=== PATIENT | male | born 1985 | race Caucasian/White ===

== ENCOUNTER 2016-07-25 08:09 | Emergency (ER) | payer SELFPAY ==
[~2016-07-25] VITALS: Ht 182.9 cm; Wt 70.5 kg
[2016-07-25 08:12] VITALS: TEMP 97.6
[2016-07-25] MEDS ORDERED: NORCO 325 MG-51 TAB PO (10:01)
[2016-07-25] MEDS ORDERED: FLEXERIL 1010 MG/TAB PO (10:01)
[2016-07-25 10:15] VITALS: BP 138/101; PULSE 84
== END 2016-07-25 10:15 | disposition home or self-care (01) ==
LOC: COL.ER 08:09
DX: S16.1XXA Strain of muscle, fascia and tendon at neck level, initial encounter (principal); S29.012A Strain of muscle and tendon of back wall of thorax, initial encounter; S66.511A Strain of intrinsic muscle, fascia and tendon of left index finger at wrist and hand level, initial encounter; W11.XXXA Fall on and from ladder, initial encounter
CPT/HCPCS: J1885; J2360

== ENCOUNTER 2017-05-10 11:13 | Emergency (ER) | payer SELFPAY ==
[~2017-05-10] VITALS: Ht 182.9 cm; Wt 77.3 kg
[~2017-05-10 11:13] MED LIST: FLEXERIL 1010 MG/TAB PO; NORCO 325 MG-51 TAB PO
[2017-05-10 11:39] VITALS: BP 102/70; PULSE 97; TEMP 98
[2017-05-10] MEDS ORDERED: NORCO 325 MG-51 TAB PO (13:39)
[2017-05-10] MEDS ORDERED: CLEOCIN HCL300 MG PO (13:39)
== END 2017-05-10 14:52 | disposition home or self-care (01) ==
LOC: COL.ER 11:13
DX: K11.20 Sialoadenitis, unspecified (principal)

== ENCOUNTER 2017-12-24 16:37 | Emergency (ER) | payer SELFPAY ==
[~2017-12-24] VITALS: Ht 182.9 cm; Wt 81.8 kg
[~2017-12-24 16:37] MED LIST changes: +CLEOCIN HCL300 MG PO
[2017-12-24 16:50] VITALS: BP 154/95; TEMP 98.6
[2017-12-24] MEDS ORDERED: NORCO 325 MG-51 TAB PO (17:45)
[2017-12-24] MEDS ORDERED: CLEOCIN HCL300 MG PO (17:45)
[2017-12-24 18:02] VITALS: PULSE 88
== END 2017-12-24 18:09 | disposition home or self-care (01) ==
LOC: COL.ER 16:37
DX: K11.5 Sialolithiasis (principal); F17.210 Nicotine dependence, cigarettes, uncomplicated; Z88.0 Allergy status to penicillin

== ENCOUNTER 2018-04-24 16:53 | Emergency (ER) | payer BC ==
[~2018-04-24] VITALS: Ht 182.9 cm; Wt 84.1 kg
[2018-04-24 17:11] VITALS: TEMP 98.6
[2018-04-24] MEDS ORDERED: MOTRIN 800800 MG/TAB PO (17:39)
[2018-04-24 17:44] LABS: COLLECTION METHOD CLEAN CATCH
[2018-04-24 17:51] LABS: BASO # 0.1 (0.0-0.2); BASO % 0.6 % (0.0-2.0); EOS % 0.1 % (0-4.0); GRAN # 4.3 (1.4-6.5); GRAN % 51.9 % (42.2-75.2); HEMATOCRIT 51.1 % (42.0-52.0); HEMOGLOBIN 17.8 g/dl (13.5-18.0); LYMPH # 3.3 (1.2-3.4); LYMPH % 39.5 % (20.0-51.0); MEAN CELL VOLUME 89 fl (80.0-100.0); MEAN CORPUSCULAR HEMOGLOBIN 31 pg (27.0-31.0); MEAN CORPUSCULAR HGB CONC 35 g/dl (33.0-37.0); MEAN PLATELET VOLUME 8.6 fl (7.4-10.4); MONO # 0.6 (0.1-0.6); MONO % 7.7 % (1.7-9.3); PLATELET COUNT 193 K/mm3 (130-400); RED BLOOD COUNT 5.77 M/mm3 (4.20-5.60); REDCELL DISTRIBUTION WIDTH-CV 11.9 % (11.5-14.5)
[2018-04-24 17:52] LABS: MUCOUS Present /lpf; PH 7 (5-8); SQUAMOUS EPITHELIAL None Seen /hpf; URINE APPEARANCE Clear; URINE BACTERIA None Seen /hpf; URINE BILIRUBIN Negative (NEGATIVE); URINE BLOOD Negative (NEGATIVE); URINE COLOR Yellow; URINE GLUCOSE Negative (NEGATIVE); URINE KETONE Negative (NEGATIVE); URINE LEUKOCYTE ESTERASE Negative (NEGATIVE); URINE NITRATE Negative (NEGATIVE); URINE PROTEIN(semi-quant) Negative (NEGATIVE); URINE RBC 0-2 /hpf; URINE UROBILINOGEN Negative (NEGATIVE)
[2018-04-24 18:01] LABS: ALANINE AMINOTRANSFERASE 48 U/L (21-72); ALBUMIN 4.3 gm/dL (3.5-5.0); ALKALINE PHOSPHATASE 85 U/L (50-136); ANION GAP 6 mmol/L (7-16); AST,SGOT 41 U/L (15-37); BILIRUBIN,TOTAL 0.8 mg/dL (0.0-1.0); BLOOD UREA NITROGEN 13 mg/dL (9-20); CALCIUM 9.7 mg/dL (8.4-10.2); CARBON DIOXIDE 34 mmol/L (22-30); CHLORIDE 97 mmol/L (98-107); CREATININE, serum 1.09 mg/dL (0.66-1.25); GLUCOSE 118 mg/dL (74-106); LIPASE 111 U/L (23-300); POTASSIUM 4.6 mmol/L (3.4-5.0); SODIUM 137 mmol/L (137-145)
[2018-04-24 18:02] LABS: C-REACTIVE PROTEIN < 0.5 mg/dL (0.0-0.9)
[2018-04-24 20:11] VITALS: BP 129/91; PULSE 99
== END 2018-04-24 20:14 | disposition home or self-care (01) ==
LOC: COL.ER 16:53
PROVIDERS: Family Medicine
DX: K59.00 Constipation, unspecified (principal)
CPT/HCPCS: J1170; J1885; J2405; J7030; Q9967

== ENCOUNTER 2018-05-16 12:03 | Emergency (ER) | payer SELFPAY ==
[~2018-05-16] VITALS: Ht 182.9 cm; Wt 84.1 kg
[~2018-05-16 12:03] MED LIST changes: +MOTRIN 800800 MG/TAB PO
[2018-05-16 12:10] VITALS: BP 133/85; TEMP 97.7
[2018-05-16 12:32] LABS: COLLECTION METHOD CLEAN CATCH
[2018-05-16] MEDS ORDERED: WELLBUTRIN 75MG75 MG PO (12:35)
[2018-05-16] MEDS ORDERED: INDERAL40 MG PO (12:36)
[2018-05-16 12:38] LABS: BASO % 0.6 % (0.0-2.0); EOS % 0.1 % (0-4.0); GRAN # 3.7 (1.4-6.5); GRAN % 53.6 % (42.2-75.2); HEMATOCRIT 46.9 % (42.0-52.0); HEMOGLOBIN 16.6 g/dl (13.5-18.0); LYMPH # 2.7 (1.2-3.4); LYMPH % 39.2 % (20.0-51.0); MEAN CELL VOLUME 87 fl (80.0-100.0); MEAN CORPUSCULAR HEMOGLOBIN 31 pg (27.0-31.0); MEAN CORPUSCULAR HGB CONC 35 g/dl (33.0-37.0); MEAN PLATELET VOLUME 8.7 fl (7.4-10.4); MONO # 0.4 (0.1-0.6); MONO % 6.4 % (1.7-9.3); PLATELET COUNT 207 K/mm3 (130-400); RED BLOOD COUNT 5.41 M/mm3 (4.20-5.60); REDCELL DISTRIBUTION WIDTH-CV 12.4 % (11.5-14.5)
[2018-05-16 12:44] LABS: MUCOUS Present /lpf; PH 5 (5-8); SQUAMOUS EPITHELIAL 0-2 /hpf; URINE APPEARANCE Hazy; URINE BILIRUBIN Negative (NEGATIVE); URINE BLOOD 1+ (NEGATIVE); URINE COLOR Yellow; URINE GLUCOSE Negative (NEGATIVE); URINE KETONE Negative (NEGATIVE); URINE LEUKOCYTE ESTERASE Negative (NEGATIVE); URINE NITRATE Negative (NEGATIVE); URINE PROTEIN(semi-quant) 1+ (NEGATIVE); URINE UROBILINOGEN Negative (NEGATIVE)
[2018-05-16 12:45] LABS: ALBUMIN 4.2 gm/dL (3.5-5.0); BILIRUBIN,TOTAL 0.6 mg/dL (0.0-1.0); CALCIUM 9.2 mg/dL (8.4-10.2); CREATININE, serum 0.99 mg/dL (0.66-1.25); TOTAL PROTEIN 6.7 gm/dL (6.4-8.2)
[2018-05-16 12:46] LABS: URINE BACTERIA None Seen /hpf
[2018-05-16] MEDS ORDERED: FLEXERIL 1010 MG/TAB PO (13:43)
[2018-05-16 13:52] VITALS: PULSE 78
== END 2018-05-16 13:54 | disposition home or self-care (01) ==
LOC: COL.ER 12:03
PROVIDERS: Emergency Medicine
DX: R31.9 Hematuria, unspecified (principal); R10.9 Unspecified abdominal pain; F41.9 Anxiety disorder, unspecified; F17.210 Nicotine dependence, cigarettes, uncomplicated
CPT/HCPCS: J1885; J2270; J2405; J7030

== ENCOUNTER 2019-04-27 18:01 | Emergency (ER) | payer BC ==
[~2019-04-27] VITALS: Ht 182.9 cm; Wt 86.4 kg
[~2019-04-27 18:01] MED LIST changes: +INDERAL40 MG PO; +WELLBUTRIN 75MG75 MG PO
[2019-04-27 18:17] VITALS: BP 136/90; TEMP 99.4
[2019-04-27 21:05] LABS: BASO % 0.2 % (0.0-2.0); GRAN # 6.6 (1.4-6.5); GRAN % 68.1 % (42.2-75.2); HEMATOCRIT 43.3 % (42.0-52.0); HEMOGLOBIN 14.9 g/dl (13.5-18.0); LYMPH # 2.4 (1.2-3.4); LYMPH % 25.2 % (20.0-51.0); MEAN CELL VOLUME 88 fl (80.0-100.0); MEAN CORPUSCULAR HEMOGLOBIN 30 pg (27.0-31.0); MEAN CORPUSCULAR HGB CONC 34 g/dl (33.0-37.0); MONO # 0.6 (0.1-0.6); MONO % 6.3 % (1.7-9.3); PLATELET COUNT 168 K/mm3 (130-400); RED BLOOD COUNT 4.95 M/mm3 (4.20-5.60); REDCELL DISTRIBUTION WIDTH-CV 12.5 % (11.5-14.5)
[2019-04-27 21:12] LABS: CREATININE, serum 0.89 (0.66-1.25); POTASSIUM 4.1 mmol/L (3.4-5.0)
[2019-04-27] MEDS ORDERED: DOXYCYCLINE HY100 MG PO (21:57)
[2019-04-27 22:30] VITALS: PULSE 102
== END 2019-04-27 22:30 | disposition home or self-care (01) ==
LOC: COL.ER 18:01
PROVIDERS: Physician Assistant
DX: J06.9 Acute upper respiratory infection, unspecified (principal); Z88.0 Allergy status to penicillin

== ENCOUNTER 2019-05-03 11:57 | Emergency (ER) | payer BC ==
[~2019-05-03] VITALS: Ht 182.9 cm; Wt 80.9 kg
[~2019-05-03 11:57] MED LIST changes: +DOXYCYCLINE HY100 MG PO
[2019-05-03 12:12] VITALS: TEMP 98.9
[2019-05-03 13:04] LABS: COLLECTION METHOD CLEAN CATCH
[2019-05-03 13:16] LABS: MUCOUS Present /lpf; PH 6 (5-8); SQUAMOUS EPITHELIAL None Seen /hpf; URINE APPEARANCE Clear; URINE BACTERIA None Seen /hpf; URINE BILIRUBIN Negative (NEGATIVE); URINE BLOOD Negative (NEGATIVE); URINE COLOR Yellow; URINE GLUCOSE Negative (NEGATIVE); URINE KETONE Negative (NEGATIVE); URINE LEUKOCYTE ESTERASE Negative (NEGATIVE); URINE NITRATE Negative (NEGATIVE); URINE PROTEIN(semi-quant) Negative (NEGATIVE); URINE UROBILINOGEN Negative (NEGATIVE)
[2019-05-03 13:17] LABS: BASO % 0.4 % (0.0-2.0); GRAN # 7.6 (1.4-6.5); HEMATOCRIT 49.7 % (42.0-52.0); HEMOGLOBIN 17.2 g/dl (13.5-18.0); LYMPH # 2.5 (1.2-3.4); LYMPH % 23.7 % (20.0-51.0); MEAN CELL VOLUME 85 fl (80.0-100.0); MEAN CORPUSCULAR HEMOGLOBIN 30 pg (27.0-31.0); MEAN CORPUSCULAR HGB CONC 35 g/dl (33.0-37.0); MEAN PLATELET VOLUME 8.6 fl (7.4-10.4); MONO # 0.4 (0.1-0.6); MONO % 3.3 % (1.7-9.3); PLATELET COUNT 227 K/mm3 (130-400); RED BLOOD COUNT 5.82 M/mm3 (4.20-5.60); REDCELL DISTRIBUTION WIDTH-CV 12.1 % (11.5-14.5)
[2019-05-03 13:31] LABS: ALANINE AMINOTRANSFERASE 30 U/L (21-72); ALBUMIN 4.6 gm/dL (3.5-5.0); ALKALINE PHOSPHATASE 102 U/L (50-136); ANION GAP 10 mmol/L (7-16); AST,SGOT 26 U/L (15-37); BILIRUBIN,TOTAL 0.5 mg/dL (0.0-1.0); BLOOD UREA NITROGEN 22 mg/dL (9-20); CALCIUM 9.5 mg/dL (8.4-10.2); CARBON DIOXIDE 29 mmol/L (22-30); CHLORIDE 103 mmol/L (98-107); CREATININE, serum 1.01 (0.66-1.25); GLUCOSE 107 mg/dL (74-106); LIPASE 39 U/L (23-300); POTASSIUM 4.2 mmol/L (3.4-5.0); SODIUM 142 mmol/L (137-145); TOTAL PROTEIN 7.6 gm/dL (6.4-8.2)
[2019-05-03 13:32] LABS: C-REACTIVE PROTEIN < 0.5 mg/dL (0.0-0.9)
[2019-05-03] MEDS ORDERED: LEVAQUIN 5500 MG/TA1 PO (16:03)
[2019-05-03] MEDS ORDERED: PROTONIX 40MG T40 MG PO (16:06)
[2019-05-03 17:25] VITALS: BP 127/78; PULSE 96
== END 2019-05-03 17:25 | disposition home or self-care (01) ==
LOC: COL.ER 11:57
PROVIDERS: Emergency Medicine
DX: J11.1 Influenza due to unidentified influenza virus with other respiratory manifestations (principal); J18.9 Pneumonia, unspecified organism; R11.2 Nausea with vomiting, unspecified; R10.13 Epigastric pain; F17.290 Nicotine dependence, other tobacco product, uncomplicated; Z88.0 Allergy status to penicillin; Z87.39 Personal history of other diseases of the musculoskeletal system and connective tissue
CPT/HCPCS: C9113; J2270; J2405; J7030; Q9967

== ENCOUNTER 2019-06-27 12:58 | Emergency (ER) | payer BC ==
[~2019-06-27] VITALS: Ht 182.9 cm; Wt 86.4 kg
[~2019-06-27 12:58] MED LIST changes: +LEVAQUIN 5500 MG/TA1 PO; +PROTONIX 40MG T40 MG PO
[2019-06-27 13:27] VITALS: BP 132/88; TEMP 98.2
[2019-06-27] MEDS ORDERED: ZOFRAN ODT4 MG PO (16:52)
[2019-06-27] MEDS ORDERED: NORCO 325 MG-51 TAB PO (17:10)
[2019-06-27 17:25] VITALS: PULSE 87
== END 2019-06-27 17:25 | disposition home or self-care (01) ==
LOC: COL.ER 12:58
DX: S06.0X0A Concussion without loss of consciousness, initial encounter (principal); G43.909 Migraine, unspecified, not intractable, without status migrainosus; R40.2410 Glasgow coma scale score 13-15, unspecified time; W11.XXXA Fall on and from ladder, initial encounter
CPT/HCPCS: J1790

== ENCOUNTER 2020-08-05 23:32 | Emergency (ER) | payer SELFPAY ==
[~2020-08-05] VITALS: Ht 182.9 cm; Wt 84.1 kg
[~2020-08-05 23:32] MED LIST changes: +ZOFRAN ODT4 MG PO
[2020-08-05 23:37] VITALS: TEMP 97.1
[2020-08-06] MEDS ORDERED: NORCO 325 MG-51 TAB PO (01:13)
[2020-08-06 01:23] VITALS: BP 136/70; PULSE 66
== END 2020-08-06 01:23 | disposition home or self-care (01) ==
LOC: COL.ER 23:32
DX: M25.512 Pain in left shoulder (principal); F41.9 Anxiety disorder, unspecified; F17.210 Nicotine dependence, cigarettes, uncomplicated; Z96.611 Presence of right artificial shoulder joint; Z88.0 Allergy status to penicillin
CPT/HCPCS: J1885

== ENCOUNTER → 2020-09-15 | Emergency (ER) | payer SELFPAY | LOC: COL.ER 20:35 | DX: R69 Illness, unspecified (principal) ==